=== PATIENT | male | born 1955 | race Caucasian/White ===

== ENCOUNTER 2024-06-17 09:49 | Emergency (ER) | payer OTHER, MEDICARE ==
[~2024-06-17] VITALS: Ht 180.3 cm; Wt 79.4 kg
[2024-06-17] MEDS ORDERED: AMLODIPINE (09:57)
[2024-06-17] MEDS ORDERED: ZETIA (09:57)
[2024-06-17] MEDS ORDERED: DIOVAN (09:57)
[2024-06-17] MEDS ORDERED: SILD100T PO (10:08)
[2024-06-17] MEDS ORDERED: ASCO500C18 PO (10:08)
[2024-06-17] MEDS ORDERED: MONT10TA33 PO (10:08)
[2024-06-17] MEDS ORDERED: AMLO-212 PO (10:08)
[2024-06-17] MEDS ORDERED: CHOL4PAC3 PO (10:08)
[2024-06-17] MEDS ORDERED: VALS80TA2 PO (10:08)
[2024-06-17] MEDS ORDERED: FOLI1TAB94 PO (10:08)
[2024-06-17] MEDS ORDERED: ICOS1CAP PO (10:08)
[2024-06-17] MEDS ORDERED: ZINC50TA69 PO (10:08)
[2024-06-17] MEDS ORDERED: ZOLP5TAB2 PO (10:08)
[2024-06-17] MEDS ORDERED: EZET10TA15 PO (10:08)
[2024-06-17] MEDS ORDERED: CALC-1026 PO (10:08)
[2024-06-17] MEDS ORDERED: CHOL100045 PO (10:08)
[2024-06-17] MEDS ORDERED: FLUT16SP16 NS (10:08)
[2024-06-17] MEDS ORDERED: ACET-2154 PO (10:08)
[2024-06-17] MEDS ORDERED: [UNRECOGNIZED DRUG - OTHER] (10:08)
[2024-06-17] MEDS ORDERED: SELE200C PO (10:08)
[2024-06-17] MEDS ORDERED: DIPH25TA27 PO (10:08)
[2024-06-17] MEDS ORDERED: VITA400C70 PO (10:08)
[2024-06-17 10:12] LABS: BASOPHILS % (AUTO) 0.4 % (0.0-2.0); EOSINOPHILS % (AUTO) 0.6 % (0.0-7.0); HEMATOCRIT 42.4 % (36.7-47.1); HEMOGLOBIN 14.4 g/dL (12.5-16.3); LYMPHOCYTES % (AUTO) 15.4 % (20.5-51.5); MEAN CORPUSCULAR HEMOGLOBIN 30.7 uug (23.8-33.4); MEAN CORPUSCULAR HGB CONC 34 g/dL (32.5-36.3); MONOCYTES # (AUTO) 0.8 K/uL (0.1-1.30); MONOCYTES % (AUTO) 11.6 % (0.0-11.0); NEUTROPHILS # (AUTO) 4.7 K/uL (1.8-8.9); PLATELET COUNT (AUTO) 236 K/uL (152-348); RED BLOOD CELL COUNT(AUTO) 4.71 MIL/uL (4.06-5.63); RED CELL DISTRIBUTION WIDTH 13.8 % (12.1-16.2); WHITE BLOOD COUNT (AUTO) 6.6 K/uL (3.6-10.2)
[2024-06-17 10:19] LABS: CALCIUM 9.1 mg/dL (8.5-10.1); CARBON DIOXIDE 23 mmol/L (21-32); CHLORIDE 106 mmol/L (98-107); DIFFERENTIAL COMMENT 1; GLUCOSE 108 mg/dL (74-106); POTASSIUM 3.7 mmol/L (3.5-5.1); SODIUM SERUM 140 mmol/L (136-145); UREA NITROGEN, BLOOD 18 mg/dL (7-18)
[2024-06-17 10:32] LABS: ALBUMIN 3.7 g/dL (3.4-5.0); BILIRUBIN,DIRECT 0.1 mg/dL (0.0-0.2); BILIRUBIN,TOTAL 0.7 mg/dL (0.2-1.0); TOTAL PROTEIN, SERUM 6.7 g/dL (6.4-8.2)
[2024-06-17] MEDS ORDERED: LORAZEPAM 2 MG/1 ML VIAL ONE (10:33)
[2024-06-17] MEDS: LORAZEPAM 2 MG/1 ML VIAL IV ONE (10:39)
[2024-06-17] MEDS: IV NORMAL SALINE 1000 ML BAG IV ONE (10:39)
[2024-06-17 11:19] LABS: *BILIRUBIN,URIN NEGATIVE (NEGATIVE); *BLOOD, URINE NEGATIVE (NEGATIVE); *CLARITY,URINE CLEAR (CLEAR); *COLOR,URINE YELLOW (YELLOW); *KETONES,URINE 3+ (NEGATIVE); *PROTEIN,URINE NEGATIVE (NEGATIVE); *UROBILINOGEN,URINE 0.2 E.U./dl (NORMAL); LEUKOCYTE ESTERASE ,URINE TRACE (NEGATIVE); NITRITE, URINE NEGATIVE (NEGATIVE); UGLUCOSE NEGATIVE (NEGATIVE)
[2024-06-17 11:39] LABS: BACTERIA,URINE FEW /HPF (NONE SEEN)
[2024-06-17] MEDS ORDERED: LORA0.5T48 PO ×2 (13:13→13:14)
[2024-06-17 13:32] VITALS: BP 127/75; O2SAT 97
== END 2024-06-17 13:26 | disposition home or self-care (01) ==
LOC: ER 09:49
DX: R07.89 Other chest pain (principal); F41.9 Anxiety disorder, unspecified; Z79.1 Long term (current) use of non-steroidal anti-inflammatories (NSAID); Z79.899 Other long term (current) drug therapy; Z20.822 Contact with and (suspected) exposure to COVID-19
CPT/HCPCS: 99285; 96374; 71045; 96361; 87426; 80076; 80048; 81001; 85025; 84484 ×2; 36415; 93005; 87086; J2060; J7040; A4606; A4663